=== PATIENT | female | born 1960 | race Caucasian/White ===

== ENCOUNTER → 2018-01-13 | Outpatient (CLI) | payer BC ==
[~2018-01-13] MED LIST: LORA10 PO; MOMENI; Necon1 EAC2 PO; XYZAL5 MG PO
== END | disposition home or self-care (01) ==
LOC: OLS 16:59 → LAB SHORT 16:59
PROVIDERS: Nurse Practitioner Women's Health
DX: Z12.4 Encounter for screening for malignant neoplasm of cervix (principal); Z91.89 Other specified personal risk factors, not elsewhere classified
CPT/HCPCS: 87624; G0123

== ENCOUNTER → 2019-01-14 | Outpatient (CLI) | payer BC ==
[2019-01-15 15:06] LABS: HPV 16 Negative (Negative); HPV 18 Negative (Negative); HPV OTHER HR TYPES Negative (Negative)
== END | disposition home or self-care (01) ==
LOC: LAB 12:23 → LAB SHORT 12:23
PROVIDERS: Nurse Practitioner Women's Health
DX: Z12.4 Encounter for screening for malignant neoplasm of cervix (principal); Z91.89 Other specified personal risk factors, not elsewhere classified
CPT/HCPCS: 87624; G0123

== ENCOUNTER 2021-07-13 07:52 | Day surgery (SDC) | payer BC ==
[~2021-07-13] VITALS: Ht 165.1 cm; Wt 74.0 kg
== END 2021-07-13 10:13 | disposition home or self-care (01) ==
LOC: ORSCSDS 07:52 → ORD 08:00 → ORSCSDS 09:15
PROVIDERS: Surgery
PROC: 0DJD8ZZ Inspection of Lower Intestinal Tract, Via Natural or Artificial Opening Endoscopic (ICD-10-PCS; principal; 2021-07-13 09:15)
DX: Z12.11 Encounter for screening for malignant neoplasm of colon (principal); Z80.0 Family history of malignant neoplasm of digestive organs; K62.89 Other specified diseases of anus and rectum; Z79.899 Other long term (current) drug therapy
CPT/HCPCS: J2704; J7120